=== PATIENT | female | born 1980 | race Two or more races ===

== ENCOUNTER 2021-06-17 16:53 | Emergency (ER) | payer OTHER, MEDICAID ==
[~2021-06-17] VITALS: Ht 165.1 cm; Wt 99.8 kg
[2021-06-17 18:49] VITALS: BP 135/91
[2021-06-17] MEDS ORDERED: ONDANSETRON ODT 4 MG TAB PO ONE (19:45)
[2021-06-17] MEDS ORDERED: ALPRAZolam 0.5 MG TAB PO ONE (19:45)
[2021-06-17] MEDS ORDERED: HYDROcodone-ACET 10/325MG TAB PO ONE (19:45)
[2021-06-17] MEDS ORDERED: LIDOCAINE 2%HCL (LOCAL ANESTH.) INJ 10ml MDV IJ ONE (20:00)
== END 2021-06-17 21:27 | disposition home or self-care (01) ==
LOC: ER 16:53
DX: S13.4XXA Sprain of ligaments of cervical spine, initial encounter (principal); I10 Essential (primary) hypertension; E03.9 Hypothyroidism, unspecified; V89.2XXA Person injured in unspecified motor-vehicle accident, traffic, initial encounter; Y93.89 Activity, other specified; Y92.89 Other specified places as the place of occurrence of the external cause; Y99.8 Other external cause status
CPT/HCPCS: 72125; 99284; J2001; Q0162

== ENCOUNTER 2023-10-14 11:26 | Emergency (ER) | payer MEDICARE, MEDICAID ==
[~2023-10-14] VITALS: Ht 165.1 cm; Wt 84.1 kg
[2023-10-14 13:44] VITALS: TEMP 97.5; O2SAT 99
[2023-10-14] MEDS ORDERED: ONDANSETRON ODT 4 MG TAB PO ONE ×2 (15:15→16:30)
[2023-10-14] MEDS ORDERED: MORPHINE SULFATE 4 MG/ML SYR/VIAL IM ONE ×2 (15:15→16:30)
[2023-10-14] MEDS ORDERED: ACET300T58 PO (16:27)
[2023-10-14] MEDS ORDERED: CIPR-173 PO (16:29)
[2023-10-14] MEDS ORDERED: MET500T PO (16:29)
[2023-10-14 16:41] VITALS: BP 137/71; PULSE 96; RESP 20
[2023-10-14] MEDS ORDERED: ACE3T PO (17:27)
== END 2023-10-14 17:09 | disposition home or self-care (01) ==
LOC: ER 11:26
DX: K57.32 Diverticulitis of large intestine without perforation or abscess without bleeding (principal); I10 Essential (primary) hypertension
CPT/HCPCS: 72170; 74176; 96372; 99285; J2270; Q0162

== ENCOUNTER 2023-10-16 21:23 | Emergency (ER) | payer MEDICAID, MEDICARE ==
[~2023-10-16] VITALS: Ht 165.1 cm; Wt 86.4 kg
[~2023-10-16 21:23] MED LIST: ACE3T PO; CIPR-173 PO; MET500T PO
[2023-10-16] MEDS ORDERED: ONDANSETRON ODT 4 MG TAB PO ONE (22:15)
[2023-10-16] MEDS ORDERED: METOCLOPRAMIDE HCL 5MG/ml INJ 2ml VIAL IV ONE (22:15)
[2023-10-16] MEDS ORDERED: SODIUM CHLORIDE 0.9% 1,000 ML IV ONE (22:15)
[2023-10-16] MEDS ORDERED: PIPERACILLIN-TAZOB 3.375GM 100 ML IV ONE (22:15)
[2023-10-16] MEDS ORDERED: HYDROmorphone HCL 2 MG/ML VL/or syr IM ONE (22:15)
[2023-10-16] MEDS ORDERED: MORPHINE SULFATE 4 MG/ML SYR/VIAL IV ONE (22:15)
[2023-10-16] MEDS ORDERED: METO-281 PO (22:17)
[2023-10-17 00:52] VITALS: BP 124/74; TEMP 98.1
[2023-10-17 01:00] VITALS: PULSE 76; RESP 16; O2SAT 98
== END 2023-10-17 01:15 | disposition home or self-care (01) ==
LOC: ER 21:23
DX: K57.92 Diverticulitis of intestine, part unspecified, without perforation or abscess without bleeding (principal); I10 Essential (primary) hypertension
CPT/HCPCS: 99283; J1170; Q0162